=== PATIENT | female | born 1970 | race Caucasian/White ===

== ENCOUNTER 2021-07-22 20:44 | Emergency (ER) | payer MEDICARE, SELFPAY ==
[2021-07-22] VITALS (7 sets, daily range): BP systolic 106–155; BP diastolic 66–82; PULSE 84–104; RESP 18–20; TEMP 36.8; O2SAT 96–99; BMI 35.6
--- NOTE | 2021-07-22 21:12 | USR_ITS ---
PROCEDURE INFORMATION: Exam: US Nonobstetric Pelvis; Complete Exam date and time: 07/22/2021 9:42 PM Age: 51 years old Clinical indication: Abdominal pain; Right lower quadrant; Additional info: Vag bleeding, rlq pain- ovary arera, HX of pcod TECHNIQUE: Imaging protocol: Transabdominal pelvic nonobstetric ultrasound. Complete exam. Real time ultrasound with image documentation. COMPARISON: No relevant prior studies available. FINDINGS: Uterus: Uterus is normal. Endometrial stripe is normal. Right ovary/adnexa: Ovary is normal. No mass. Normal blood flow. Left ovary/adnexa: Ovary is normal. No mass. Normal blood flow. Intraperitoneal space: No intraperitoneal fluid. Urinary bladder: Normal. US/US pelvic complete* [id number] IMPRESSION: No acute findings.
--- NOTE | 2021-07-22 21:29 | W.ED.FEMALGU ---
Documented by User: SHARON Patel 07/23/21 00:47 HPI - Female Genitourinary General: Chief complaint: Vaginal Bleeding Stated complaint: urogenital bleeding, abd pain Time Seen by Provider: 07/22/21 21:01 History of Present Illness: Patient states she started bleeding about an hour ago. She was doing fine up to an hour ago and started with some right lower quadrant pain. Patient has a history pcod -dysfunctional uterine bleeding. Saw her [facility] 3 months ago. No planned hysterectomy. Just watch and wait. She said her doc said if she had any heavy bleeding she is come to the ER and that is why she is here tonight. She went through 1 liner pad in a few minutes. Complained about right lower quadrant pain. Denies any vaginal discharge. Has not been ill the last few days. Associated symptoms: Deny abdominal pain, headache(s), nausea or vaginal discharge Review of Systems Const: Denies: fever(s), chills or body aches Eyes: Denies: eye discomfort ENMT: Denies: throat pain Card: Denies: chest pain Resp: Denies: dyspnea GI: Denies: abdominal pain, nausea or vomiting : Reports: vaginal bleeding (And sudden onset right lower quadrant pain and pelvic area.); Denies: vaginal discharge Skin/Breast: Denies: rash Neuro: Denies: headache(s) Psych: Denies: depression or suicidal ideation Physical Exam Const: COMMON NORMALS: no acute distress, patient oriented x3 and alert HENMT: COMMON NORMALS: normocephalic and external ears normal HEAD & SCALP: normocephalic EXTERNAL EAR: Yes external ears normal Eye: COMMON NORMALS: EOMs intact bilaterally Neck/C-Spine: COMMON NORMALS: no JVD Resp: COMMON NORMALS: normal respiratory effort and No use of accessory muscles Cardio: COMMON NORMALS: no JVD GI: INSPECTION: Yes normal to inspection Extremity: COMMON NORMALS: normal to inspection and full ROM Neuro: COMMON NORMALS: patient oriented x3 SENSORIUM/ORIENTATION: Yes alert Psych: COMMON NORMALS: mental status grossly normal Skin: COMMON NORMALS: no rashes or lesions noted GENERAL SKIN EXAM: no rashes or lesions noted Course Vital Signs: Vital signs: Vital Signs Temperature 98.3 F 07/22/21 20:52 Pulse Rate 84 04/23/22 23:15 Respiratory Rate 18 07/22/21 23:15 Blood Pressure 116/76 07/22/21 23:15 Pulse Oximetry 97 07/22/21 23:15 MDM - Female Medical Decision Making Patient presents with episode of bleeding tonight. Did start about an hour earlier. Patient's not had bleeding since she has been here in the ER. Patient currently being treated by a specialist in [place] for possible dysfunctional uterine bleeding. Patient says she is 10 years postmenopausal but started bleeding last year intermittently. She says that her specialist that she should come to ER anytime that she is bleeding. Patient ultrasound negative for concerning findings. Labs not performed because vital signs were stable and bleeding was short-lived one-time episode. Pain medication relieved patient's symptoms. Encourage patient to contact specialist follow-up with them. Patient declines any medication for any possible flareup of her bleeding. Pain medication prepped was provided Lab Data Radiology Impressions Pelvis Ultrasound 07/22/21 21:12 IMPRESSION: No acute findings. Discharge Plan Discharge Patient Disposition: Home Clinical Impression: DUB (dysfunctional uterine bleeding) Condition: Stable Prescriptions: New hydrocodone-acetaminophen 5-325 mg tablet 1 tab PO TID PRN (Reason: pain) Qty: 14 0RF Discharge Orders: Discharge ED (Routine); Ordered 07/22/21 Ordered By: Fam Fox Discharge Diet: Usual diet Discharge Activity: Increase activity as tolerated Activity Restrictions/Additional Instructions: There are valueContact your specialist and see about patient. Coding Level of Care Code ED [employer] [employer] for [facility] Fwd Exam Comprehensive Documented by User: Scout White DO 07/23/21 11:07 HPI - Female Genitourinary General: Chief complaint: Vaginal Bleeding Stated complaint: urogenital bleeding, abd pain Time Seen by Provider: 07/22/21 21:01 Course Consultations: Consultation #1: This patient was seen and evaluated and treated by the midlevel practitioner while I was and attending physician in the emergency department. This chart is being signed as part of departmental policy. I did not see or evaluate this patient personally and this case was not discussed with me. Vital Signs: Vital signs: Vital Signs Temperature 98.3 F 07/22/21 20:52 Pulse Rate 84 07/22/21 23:15 Respiratory Rate 18 07/22/21 23:15 Blood Pressure 116/76 07/22/21 23:15 Pulse Oximetry 97 07/22/21 23:15 MDM - Female Lab Data Radiology Impressions Pelvis Ultrasound 07/22/21 21:12 IMPRESSION: No acute findings. Discharge Plan Discharge Patient Disposition: Home Clinical Impression: DUB (dysfunctional uterine bleeding) Condition: Stable Prescriptions: New hydrocodone-acetaminophen 5-325 mg tablet 1 tab PO TID PRN (Reason: pain) Qty: 14 0RF Discharge Orders: Discharge ED (Routine); Ordered 07/22/21 Ordered By: Fam Fox Discharge Diet: Usual diet Discharge Activity: Increase activity as tolerated Activity Restrictions/Additional Instructions: There are valueContact your specialist and see about patient. Coding Level of Care Code ED [employer] [employer] Manager for [place] Fwd Exam Comprehensive
[2021-07-22] MEDS: HYDROcodone-acetaminophen 7.5-325 mg Tablet 1 TAB PO (22:02)
== END 2021-07-22 23:15 | disposition home or self-care (01) ==
PROVIDERS: Emergency Provider Nurse Practitioner Family
DX: N93.8 Other specified abnormal uterine and vaginal bleeding (principal)
CPT/HCPCS: 76856; 99283

== ENCOUNTER 2022-06-29 11:23 | Outpatient (CLI) | payer MEDICARE, SELFPAY ==
--- NOTE | 2022-06-29 11:46 | XR_ITS ---
WS: [id number] Exam: XR chest 2V* [id number] Date/Time of Exam: 06/29/2022 11:50 AM Reason For Exam: MILD PERSISTENT ASTHMA Comparison 06/19/2017. Findings: The lungs are clear and fully expanded. Costophrenic angles are sharp. No infiltrates. Bronchovascula r relief appears normal. Cardiac silhouette is unremarkable. Bony elements are intact. XR/XR chest 2V* [id number] IMPRESSION: Unremarkable chest radiograph.
== END 2022-06-29 11:24 | disposition home or self-care (01) ==
LOC: RAD CLINIC 11:35 → RAD 11:38
PROVIDERS: PCP Otolaryngology; Visit Provider Otolaryngology
DX: J45.30 Mild persistent asthma, uncomplicated (principal)
CPT/HCPCS: 71046

== ENCOUNTER → 2022-09-27 13:22 | Outpatient (BNVA) | payer MEDICARE, SELFPAY | PROVIDERS: PCP Otolaryngology; Visit Provider Internal Medicine Pulmonary Disease | DX: J45.909 Unspecified asthma, uncomplicated (principal); Z77.22 Contact with and (suspected) exposure to environmental tobacco smoke (acute) (chronic) | CPT/HCPCS: 99204 ==

== ENCOUNTER 2022-10-18 12:52 | Outpatient (CLI) | payer MEDICARE, SELFPAY | END 2022-10-18 12:53 | disposition home or self-care (01) | PROVIDERS: PCP Otolaryngology; Visit Provider Internal Medicine Pulmonary Disease | DX: R06.09 Other forms of dyspnea (principal) | CPT/HCPCS: 94010; 94726; 94729 ==

== ENCOUNTER → 2023-02-27 16:27 | Outpatient (BNVA) | payer MEDICARE, SELFPAY | PROVIDERS: PCP Otolaryngology; Visit Provider Internal Medicine Pulmonary Disease | DX: J45.40 Moderate persistent asthma, uncomplicated (principal); Z77.22 Contact with and (suspected) exposure to environmental tobacco smoke (acute) (chronic) | CPT/HCPCS: 36415; 85025; 99214 ==

== ENCOUNTER 2023-10-29 13:30 | Outpatient (CLI) | payer MEDICARE, SELFPAY ==
--- NOTE | 2023-10-29 13:30 | MM_ITS ---
WS: [id number] BILATERAL 3D TOMOSYNTHESIS DIGITAL SCREENING MAMMOGRAPHY WITH CAD CLINICAL INFORMATION: SCREENING HISTORY: Screening mammogram. Chronic LEFT breast pain COMPARISON: 2021 TECHNIQUE: Bilateral CC and MLO views. FINDINGS: Scattered fibroglandular densities bilaterally. No suspicious focal mass, asymmetry, calcifications, or architectural distortion. No evidence of malignancy. Incidental punctate calcifications. MM/[place] [id number] IMPRESSION: BI-RADS: 2-Benign FOLLOW UP: 1 Year Follow-up Recommend return to annual screening mammography.
== END 2023-10-29 13:31 | disposition home or self-care (01) ==
PROVIDERS: Family Provider Otolaryngology; PCP Internal Medicine; Visit Provider Internal Medicine
DX: Z12.31 Encounter for screening mammogram for malignant neoplasm of breast (principal); R92.323 Mammographic fibroglandular density, bilateral breasts
CPT/HCPCS: 77063; 77067

== ENCOUNTER → 2023-11-04 13:57 | Outpatient (BNVA) | payer MEDICARE, SELFPAY | PROVIDERS: Family Provider Otolaryngology; PCP Internal Medicine; Visit Provider Internal Medicine Critical Care Medicine | DX: R06.09 Other forms of dyspnea (principal); J38.3 Other diseases of vocal cords; K21.9 Gastro-esophageal reflux disease without esophagitis; E66.9 Obesity, unspecified; R29.898 Other symptoms and signs involving the musculoskeletal system; F41.9 Anxiety disorder, unspecified; Z68.36 Body mass index [BMI] 36.0-36.9, adult | CPT/HCPCS: 99214 ==

== ENCOUNTER 2025-03-30 10:25 | Outpatient (CLI) | payer MEDICARE, SELFPAY ==
--- NOTE | 2025-03-30 10:30 | MM_ITS ---
WS: [id number] BILATERAL 3D TOMOSYNTHESIS DIGITAL SCREENING MAMMOGRAPHY WITH CAD CLINICAL INFORMATION: SCREENING HISTORY: Screening mammogram. No current complaints. COMPARISON: 2023 TECHNIQUE: Bilateral CC and MLO views. FINDINGS: Scattered fibroglandular densities bilaterally. No suspicious focal mass, asymmetry, calcifications, or architectural distortion. No evidence of malignancy. MM/MM scr BI tomosynthesis [id number] IMPRESSION: DENSITY: There are scattered areas of fibroglandular density. BI-RADS: 1 - Negative. FOLLOW UP: 1 Year Follow-up Recommend return to annual screening mammography.
== END 2025-03-30 10:26 | disposition home or self-care (01) ==
LOC: MOBLMAM 10:30
PROVIDERS: Family Provider Otolaryngology; PCP Internal Medicine; Visit Provider Internal Medicine
DX: Z12.31 Encounter for screening mammogram for malignant neoplasm of breast (principal)
CPT/HCPCS: 77063; 77067